=== PATIENT | male | born 1995 | race Asian ===

== ENCOUNTER 2024-11-14 09:18 | Outpatient (CLI) | payer OTHER, SELFPAY ==
--- NOTE | 2024-11-14 09:38 | ECG_ITS ---
Test Date: 2024-11-14 10:01:38 Measurements Intervals [place] Rate: 82 P: 72 [place]: 130 QRS: 74 QRSD: 95 T: 65 QT: 339 QTc: 398 Interpretive Statements SINUS RHYTHM POSSIBLE LEFT ATRIAL ENLARGEMENT INCOMPLETE RIGHT BUNDLE BRANCH BLOCK BORDERLINE ECG No previous ECG available for comparison Electronically Signed On 11-14-2024 11:17:21 [employer]GER by Jose D Antoine D.O.
== END 2024-11-14 09:19 | disposition home or self-care (01) ==
PROVIDERS: PCP Internal Medicine; Visit Provider Internal Medicine
DX: R55 Syncope and collapse (principal); I45.10 Unspecified right bundle-branch block
CPT/HCPCS: 93005; 93242

== ENCOUNTER 2024-11-22 14:49 | Outpatient (CLI) | payer OTHER, SELFPAY ==
--- NOTE | 2024-11-22 15:10 | ECHO_ITS ---
Patient Info Name: Oc Briggs Age: 29 years : 1995 Gender: Male Ht: 63 in Wt: 126 lbs BSA: 1.60 m2 HR: 87 bpm BP: 100 / 50 mmHg Technical Quality: Good Exam Date: 11/22/2024 3:17 PM Exam Location: Echo Lab Patient Status: Outpatient Admit Date: 11/22/2024 Staff Ordering Physician: Amos Crump DO Tissue Technician: Melva Serrano RDCS Attending Provider: Amos Crump DO Referring Physician: Alisia HARRIS; Exam Type: CA echo doppler color flow Study Info Indications R55 - Syncope and collapse Complete two-dimensional, color flow and Doppler transthoracic echocardiogram is performed. Summary 1. Complete two-dimensional, color flow and Doppler transthoracic echocardiogram is performed. 2. Left ventricular chamber dimension is normal. 3. Left ventricular systolic function is normal, estimated at 60-65%. 4. The left ventricular diastolic function is normal. 5. E/e' 7 is not elevated. 6. There is trace tricuspid valve regurgitation. 7. No pulmonary hypertension, estimated pulmonary arterial systolic pressure is 26 mmHg. Left Ventricle E/e' 7 is not elevated. Left ventricular chamber dimension is normal. Left ventricular systolic function is normal, estimated at 60-65%. The left ventricular diastolic function is normal. Right Ventricle Right ventricular systolic function is normal and with normal TAPSE 2.1 cm. Right ventricular chamber dimension is normal. Left Atria Left atrial chamber dimension is normal. Right Atria Right atrial chamber dimension is normal. Aortic Valve The aortic valve is trileaflet. There is no aortic valve stenosis. There is no aortic valve regurgitation. Pulmonic Valve There is no pulmonic regurgitation. Mitral Valve There is no mitral valve stenosis. There is no mitral valve regurgitation. Tricuspid Valve There is trace tricuspid valve regurgitation. No pulmonary hypertension, estimated pulmonary arterial systolic pressure is 26 mmHg. Pericardium/Pleural There is no pericardial effusion. Inferior Vena Cava Normal inferior vena cava with >50% collapse upon inspiration consistent with normal right atrial pressure, 5 mmHg. Aorta The aortic root size at the sinus of Valsalva is normal. Left Ventricular Outflow Tract Name Value Normal LVOT Doppler LVOT Peak Gradient 6 mmHg LVOT Mean Gradient 3 mmHg LVOT VTI 20 cm LVOT VTI/AV VTI Ratio 0.9 Pulmonic Valve Name Value Normal PV Doppler PV Peak Gradient 4 mmHg Mitral Valve Name Value Normal MV Doppler MV Decel [place] 705 cm/s2 MV PHT 44 ms MV Area (PHT) 5.0 cm2 4.0-5.0 MV Diastolic Function MV E Peak Velocity 108 cm/s MV A Peak Velocity 63 cm/s MV E/A 1.7 MV Decel Time 153 ms MV Annular TDI MV E/e' (Septal) 8.3 <=8.0 MV E/e' (Lateral) 7.3 <=8.0 MV E/e' (Average) 7.8 Tricuspid Valve Name Value Normal TV Regurgitation Doppler TR Peak Velocity 231 cm/s TR Peak Gradient 14 mmHg Estimated PAP/RSVP RA Pressure 5 mmHg <=5 PA Systolic Pressure 26 mmHg <36 RV Systolic Pressure 26 mmHg <36 Aortic Valve Name Value Normal AV Doppler AV Peak Velocity 126 cm/s AV Peak Gradient 6 mmHg AV Mean Gradient 3 mmHg AV VTI 22 cm Ventricles Name Value Normal LV Dimensions 2D/MM IVS Diastolic Thickness (2D) 0.8 cm 0.6-1.0 LVID Diastole (2D) 4.5 cm 4.2-5.8 LVIW Diastolic Thickness (2D) 0.9 cm 0.6-1.0 LVID Systole (2D) 2.7 cm 2.5-4.0 LV Mass (2D Cubed) 121.74 g 88.00-224.00 LV Mass Index (2D Cubed) 76 g/m2 49-115 Relative Wall Thickness (2D) 0.39 LV Fractional Shortening/Ejection Fraction 2D/MM LV Fractional Shortening (2D) 40 % 25-43 LV EF (2D Teicholz) 70 % 52-72 LV Diastolic Volume (4C MOD) 62 ml LV EF (4C MOD) 48 % LV Diastolic Volume (2C MOD) 74 ml LV EF (2C MOD) 69 % LV Diastolic Volume (BP MOD) 68 ml 62-150 LV Diastolic Volume Index (BP MOD) 43 ml/m2 34-74 LV Systolic Volume (BP MOD) 30 ml 21-61 LV Systolic Volume Index (BP MOD) 19 ml/m2 11-31 LV EF (BP MOD) 56 % 52-72 LV Diastolic Length (4C) 7.5 cm LV Systolic Length (4C) 5.8 cm LV Stroke Volume (4C MOD) 33 ml Atria Name Value Normal LA Dimensions LA Volume (4C A-L) 32 ml LA Volume (BP A-L) 33 ml RA Dimensions RA Area (4C) 11.8 cm2 <=18.0 Report Signatures
== END 2024-11-22 14:50 | disposition home or self-care (01) ==
PROVIDERS: PCP Internal Medicine; Visit Provider Internal Medicine
DX: R55 Syncope and collapse (principal)
CPT/HCPCS: 93306

== ENCOUNTER 2024-12-02 08:07 | Outpatient (CLI) | payer OTHER, SELFPAY ==
--- NOTE | ~2024-12-02 | CT_ITS ---
Non-contrast Head CT History: Headache Technique: Axial non-contrast imaging of the brain was performed. Dose reduction technique was used on this scan by utilizing automated exposure control and iterative reconstruction technique. The dose -length product (DLP) was 605.33 mGy-cm. Findings: There is no evidence of intracranial hemorrhage, mass lesion, or acute infarct. Brain par enchyma appears normal. The ventricles and subarachnoid spaces are normal in size. The calvarium ap pears normal. The visualized paranasal sinuses and mastoid air cells are clear. Impression: No significant abnormality seen. Reviewed, dictated and finalized at location . Impression: No significant abnormality seen.
== END 2024-12-02 08:08 | disposition home or self-care (01) ==
PROVIDERS: PCP Internal Medicine; Visit Provider Internal Medicine
DX: R51.9 Headache, unspecified (principal)
CPT/HCPCS: 70450

== ENCOUNTER 2024-12-05 13:25 | Outpatient (CLI) | payer OTHER, SELFPAY | END 2024-12-05 13:26 | disposition home or self-care (01) | LOC: ANHBWCAUD 13:25 | PROVIDERS: PCP Internal Medicine; Visit Provider Otolaryngology | DX: H90.6 Mixed conductive and sensorineural hearing loss, bilateral (principal); H93.13 Tinnitus, bilateral; H69.91 Unspecified Eustachian tube disorder, right ear; H81.10 Benign paroxysmal vertigo, unspecified ear | CPT/HCPCS: 92557; 92567 ==